=== PATIENT | female | born 1965 | race Hispanic/Latino ===

== ENCOUNTER 2023-08-14 06:26 | Day surgery (SDC) | payer OTHER ==
[2023-08-08 09:42] VITALS: BP 138/73; PULSE 60; RESP 16
[2023-08-08 09:48] LABS: BASOPHILS # (AUTO) 0.05 K/uL (0.00-0.20); BASOPHILS % (AUTO) 0.9 % (0.0-5.0); EOSINOPHILS # (AUTO) 0.07 K/uL (0.00-0.70); EOSINOPHILS % (AUTO) 1.3 % (0.0-8.0); HEMATOCRIT 36.6 % (36-48); IMMATURE GRANULOCYTE ABSOLUTE 0.02 K/uL (0-1); LYMPHOCYTES # (AUTO) 1.1 K/uL (1.0-4.8); LYMPHOCYTES % (AUTO) 19.3 % (21.0-51.0); MEAN CORPUSCULAR HEMOGLOBIN 25.3 pg (27.0-33.0); MEAN CORPUSCULAR HGB CONC 32.5 g/dL (32.0-36.0); MEAN CORPUSCULAR VOLUME 77.9 fL (79-99); MONOCYTES # (AUTO) 0.6 K/uL (0.1-1.0); NEUTROPHILS # (AUTO) 3.7 K/uL (1.8-7.7); NEUTROPHILS % (AUTO) 67.1 % (40.0-77.0); PLATELET COUNT (AUTO) 247 K/uL (130-400); RED CELL DISTRIBUTION WIDTH 16.4 % (11.0-15.5); WHITE BLOOD COUNT (AUTO) 5.6 K/uL (4.8-10.8)
[2023-08-08 10:01] LABS: CREATININE 0.8 mg/dL (0.5-1.0); POTASSIUM 3.9 mmol/L (3.5-5.1)
[2023-08-08 10:04] LABS: INR 2.38 (0.85-1.15); PROTHROMBIN TIME 24.1 SEC (9.6-11.6)
[2023-08-14] VITALS (17 sets, daily range): BP systolic 89–151; BP diastolic 52–87; PULSE 51–64; RESP 11–18
[~2023-08-14] VITALS: Ht 144.8 cm; Wt 85.0 kg
[~2023-08-14 06:26] MED LIST: ALBU18HF7 IH; ANTIDIARRHEAL PO; CALCIUM PO; DILT120C12 PO; ERGO500093 PO; LEVO75CA5 PO; SOLI5TAB6 PO; WARF6TAB49 PO; WIXELA IH
[2023-08-14] MEDS ORDERED: BUPIVACAINE/PF 0.5% 30ML VIAL ONE (07:09)
[2023-08-14] MEDS ORDERED: EPINEPHRINE PF 1MG (1:1,000) 1 MG/ML AMP ONE (07:10)
[2023-08-14] MEDS ORDERED: CEFAZOLIN SODIUM 2 GM VIAL ONE (07:25)
[2023-08-14 07:36] LABS: INR 1.06 (0.85-1.15); PROTHROMBIN TIME 11.4 SEC (9.6-11.6)
[2023-08-14] MEDS ORDERED: MIDAZOLAM HCL 1 MG/ML 2ML VIAL ONE (08:38)
[2023-08-14] MEDS ORDERED: KETAMINE 50MG/ML SYRINGE 50 MG/ML DISP.SYRIN ONE (08:39)
[2023-08-14] MEDS ORDERED: FENTANYL CITRATE PF 50 MCG/1 ML 2ML VIAL ONE (08:42)
[2023-08-14] MEDS ORDERED: PROPOFOL 10 MG/ML 20ML VIAL IV ONE ×2 (08:42→08:56)
[2023-08-14] MEDS: CEFAZOLIN SODIUM 2 GM VIAL IVPB ONE (09:00)
[2023-08-14] MEDS ORDERED: DOCU-116 PO (09:21)
[2023-08-14] MEDS ORDERED: TRAM50TA4 PO (09:21)
[2023-08-14] MEDS: ACETAMINOPHEN 1,000 MG/100 ML VIAL IV ONE (10:14)
[2023-08-14] MEDS: KETOROLAC 30MG VIAL (30MG/ML) ONE (10:17)
[2023-08-14] MEDS: LACTATED RINGERS 1000ML 1,000 ML IV ONE (12:00)
== END 2023-08-14 11:30 | disposition home or self-care (01) ==
LOC: DAH 06:26
PROVIDERS: ATTEND Surgery
DX: L72.0 Epidermal cyst (principal); I10 Essential (primary) hypertension; C20 Malignant neoplasm of rectum; E66.01 Morbid (severe) obesity due to excess calories; J45.909 Unspecified asthma, uncomplicated; Z90.49 Acquired absence of other specified parts of digestive tract; Z93.3 Colostomy status; Z88.5 Allergy status to narcotic agent; Z88.8 Allergy status to other drugs, medicaments and biological substances; Z79.01 Long term (current) use of anticoagulants; Z79.899 Other long term (current) drug therapy
CPT/HCPCS: 80048; 85025; 85610 ×2; 36415 ×2; 11402; 88304; A6260; J0665; A4663; A4452; J7120; J3010; J0171; J2250; J2704 ×2; J1885; J3490 ×2; J0690 ×2; A4215; A4223; A4213; A4222; A4221; A4600